=== PATIENT | female | born 1940 | race Caucasian/White ===

== ENCOUNTER 2016-09-19 07:35 | Inpatient (IN) | payer MEDICARE, OTHER ==
[~2016-09-19] VITALS: Ht 157.5 cm; Wt 79.1 kg
[2016-09-19] MEDS ORDERED: DEXTROSE 50% 50 ML ONE (08:19)
[2016-09-19] MEDS ORDERED: ACETAMINOPHEN 650 MG SUPP RECTAL ONE (08:43)
[2016-09-19] MEDS ORDERED: SODIUM CHLORIDE 0.9% 1,000 ML ONE (09:03)
[2016-09-19] MEDS ORDERED: DUONEB INH ONE (09:08)
[2016-09-19] MEDS ORDERED: PHARMACY TO DOSE MERREM IV SCH (10:20)
[2016-09-19] MEDS ORDERED: ONDANSETRON 4 MG VIAL IV PRN (10:20)
[2016-09-19] MEDS ORDERED: SALINE FLUSH 10 ML FLUSH PRN (10:20)
[2016-09-19] MEDS ORDERED: DEXTROSE 50% SYRINGE 50 ML IV PRN (10:20)
[2016-09-19] MEDS ORDERED: DUONEB INH PRN (10:20)
[2016-09-19] MEDS ORDERED: GLUCAGON 1 MG VIAL IM PRN (10:20)
[2016-09-19] MEDS ORDERED: SODIUM CHLORIDE 0.9% 1,000 ML IV SCH (10:20)
[2016-09-19] MEDS ORDERED: **NOTE TO NURSE XX SCH (12:42)
[2016-09-19 13:02] VITALS: BP_SYST 128; BP_SYST 132; RESP 18
[2016-09-19] MEDS ORDERED: MISSING DOSE XX ONE ×2 (14:35→23:10)
[2016-09-19 15:23] VITALS: BMI 31.9
[2016-09-19 15:34] VITALS: BP_SYST 110; RESP 18
[2016-09-19 16:42] VITALS: RESP 18
[2016-09-19] MEDS: PANTOPRAZOLE 40 MG TAB PO SCH (17:06)
[2016-09-19] MEDS: DEXTROSE 5% SALINE 0.9% 1,000 ML IV SCH (17:42)
[2016-09-19] MEDS: SALINE FLUSH 10 ML FLUSH SCH (19:42)
[2016-09-19 19:43] VITALS: BP_SYST 116; RESP 16; TEMP 99.3
[2016-09-20] VITALS (7 sets, daily range): BP systolic 96–142; RESP 16–20; TEMP 96.3–100.9; Ht 157.5 cm; Wt 79.1 kg
[2016-09-20] MEDS: SODIUM CHLORIDE 0.9% FLUSH BAG 500 ML IV SCH (00:01)
[2016-09-20] MEDS: ACETAMINOPHEN 325 MG TAB PO PRN (00:06)
[2016-09-20] MEDS: PANTOPRAZOLE 40 MG TAB PO SCH (06:24)
[2016-09-20] MEDS: DEXTROSE 5% SALINE 0.9% 1,000 ML IV SCH (06:37)
[2016-09-20] MEDS: DULoxetine 30 MG CAP PO SCH (11:18)
[2016-09-20] MEDS: ENOXAPARIN 40 MG/0.4 ML SYR SUBQ SCH (11:19)
[2016-09-20] MEDS: SALINE FLUSH 10 ML FLUSH SCH ×2 (11:19→19:49)
[2016-09-21 03:50] VITALS: BP_SYST 144; RESP 18; TEMP 97.1
[2016-09-21] MEDS: PANTOPRAZOLE 40 MG TAB PO SCH (06:36)
[2016-09-21] MEDS: SODIUM CHLORIDE 0.9% FLUSH BAG 500 ML IV SCH (06:37)
[2016-09-21] MEDS: DEXTROSE 5% SALINE 0.9% 1,000 ML IV SCH (06:38)
[2016-09-21] MEDS: SALINE FLUSH 10 ML FLUSH SCH ×2 (07:54→20:00)
[2016-09-21] MEDS: DULoxetine 30 MG CAP PO SCH (07:55)
[2016-09-21] MEDS: ENOXAPARIN 40 MG/0.4 ML SYR SUBQ SCH (07:55)
[2016-09-21 07:59] VITALS: BP_SYST 140; RESP 18; TEMP 97
[2016-09-21] MEDS: MAGNESIUM SULF 1 GM/100 ML 100 ML IV SCH ×2 (09:00→10:00)
[2016-09-21 11:20] VITALS: BP_SYST 116; RESP 18; TEMP 96.6
[2016-09-21 15:50] VITALS: BP_SYST 112; RESP 18; TEMP 98.2
[2016-09-21 19:39] VITALS: BP_SYST 158; RESP 18; TEMP 98.2
[2016-09-21 23:36] VITALS: BP_SYST 120; RESP 18; TEMP 97.1
[2016-09-22 04:03] VITALS: BP_SYST 140; RESP 18; TEMP 96.5
[2016-09-22] MEDS: PANTOPRAZOLE 40 MG TAB PO SCH (06:14)
[2016-09-22] MEDS: SODIUM CHLORIDE 0.9% FLUSH BAG 500 ML IV SCH (06:14)
[2016-09-22 08:22] VITALS: BP_SYST 136; RESP 18; TEMP 97.4
[2016-09-22] MEDS: DULoxetine 30 MG CAP PO SCH (09:12)
[2016-09-22] MEDS: ENOXAPARIN 40 MG/0.4 ML SYR SUBQ SCH (09:13)
[2016-09-22] MEDS: SALINE FLUSH 10 ML FLUSH SCH ×2 (09:13→21:07)
[2016-09-22 11:35] VITALS: BP_SYST 136; RESP 18; TEMP 97.6
[2016-09-22 15:39] VITALS: BP_SYST 138; RESP 18; TEMP 97.6
[2016-09-22 20:01] VITALS: BP_SYST 120; RESP 18; TEMP 97.1
[2016-09-23] VITALS (7 sets, daily range): BP systolic 118–130; RESP 18–20; TEMP 95.3–98.7
[2016-09-23] MEDS: ACETAMINOPHEN 325 MG TAB PO PRN (03:18)
[2016-09-23] MEDS: PANTOPRAZOLE 40 MG TAB PO SCH (06:10)
[2016-09-23] MEDS: SODIUM CHLORIDE 0.9% FLUSH BAG 500 ML IV SCH (06:10)
[2016-09-23] MEDS: SALINE FLUSH 10 ML FLUSH SCH (07:52)
[2016-09-23] MEDS: DULoxetine 30 MG CAP PO SCH (09:49)
[2016-09-23] MEDS: ENOXAPARIN 40 MG/0.4 ML SYR SUBQ SCH (09:50)
[2016-09-23] MEDS ORDERED: NITROFURANTOIN 100 MG CAP PO SCH (13:10)
== END 2016-09-23 18:45 | DRG 682 ==
LOC: CANRESERV → ENRESERVDT → ENRESERVTM → ER 07:35 → ENPENDDIS 10:20 → EMR 10:20 → 4THW 12:40
PROVIDERS: ADMIT Internal Medicine; ATTEND Internal Medicine
DX: N17.9 Acute kidney failure, unspecified (principal); G92 Toxic encephalopathy; E87.5 Hyperkalemia; N39.0 Urinary tract infection, site not specified; E83.42 Hypomagnesemia; J44.9 Chronic obstructive pulmonary disease, unspecified; B95.2 Enterococcus as the cause of diseases classified elsewhere; E11.9 Type 2 diabetes mellitus without complications; B96.20 Unspecified Escherichia coli [E. coli] as the cause of diseases classified elsewhere; Z79.84 Long term (current) use of oral hypoglycemic drugs; R32 Unspecified urinary incontinence; K21.9 Gastro-esophageal reflux disease without esophagitis; N18.3 Chronic kidney disease, stage 3 (moderate)
CPT/HCPCS: 36415; 70450; 71010; 80048; 80053; 81001; 82947; 83605; 83735; 84439; 84443; 85025; 87040; 87077; 87088; 87186; 93005; 94640; 94799; 96361; 96365; 96375; 99223; 99232; 99239